=== PATIENT | male | born 1935 | race Caucasian/White ===

== ENCOUNTER → 2016-05-21 | Outpatient (CLI) | payer OTHER ==
[~2016-05-21] MED LIST: ASPI81TA25 PO; CARV3.12 PO; CLC100X PO; LISI-461 PO; SIMV20TA2 PO; TRAM-10 PO; TRIA75TA53 PO
[2016-05-21 11:19] LABS: HEMATOCRIT 40.7 % (42-52); MEAN CELL VOLUME 95.1 fL (80-100); MEAN CORPUSCULAR HEMOGLOBIN 31.8 pg (25-34); MEAN CORPUSCULAR HGB CONC 33.4 g/dl (32-36); MEAN PLATELET VOLUME 11.2 fL (7.4-10.4); PLATELET COUNT 168 K/uL (130-400); RED BLOOD COUNT 4.28 M/uL (4.7-6.1); WHITE BLOOD COUNT 4.02 K/uL (4.8-10.8)
[2016-05-21 11:29] LABS: URINE APPEARANCE CLEAR (CLEAR); URINE BILIRUBIN NEG (NEG); URINE COLOR YELLOW; URINE EPITHELIAL CELL AUTO 0-5 /lpf (0-5); URINE NITRITE NEG (NEG); URINE SPECIFIC GRAVITY 1.007 (1.000-1.030); UROBILINOGEN NEG (NEG)
[2016-05-21 11:30] LABS: ALT/SGPT 21 U/L (12-78); AST/SGOT 16 U/L (15-37); BLOOD UREA NITROGEN 34 mg/dl (7-18); BUN/CREATININE RATIO 19.9 (10-20); CALCIUM 9.2 mg/dl (8.5-10.1); CARBON DIOXIDE 24 mmol/L (21-32); CHLORIDE 108 mmol/L (98-107); GLUCOSE 102 mg/dl (70-99); POTASSIUM 5.5 mmol/L (3.5-5.1); SODIUM 140 mmol/L (136-145)
[2016-05-21 11:32] LABS: ALB/GLOB RATIO 0.9 (0.9-2); ALKALINE PHOSPHATASE 138 U/L (45-117)
[2016-05-21 11:43] LABS: MANUAL MICROSCOPIC REQUIRED? NO; REVIEW REQ? NO
[2016-05-21 11:47] LABS: URINE PROTIEN/CREAT RATIO 0.3 (0-0.2); URINE TOTAL PROTEIN 17.2 mg/dl (0-11.9)
== END | disposition home or self-care (01) ==
LOC: C.LAB1850 10:25
PROVIDERS: ATTEND Internal Medicine Nephrology
DX: I12.9 Hypertensive chronic kidney disease with stage 1 through stage 4 chronic kidney disease, or unspecified chronic kidney disease (principal); N18.3 Chronic kidney disease, stage 3 (moderate); D64.9 Anemia, unspecified; E55.9 Vitamin D deficiency, unspecified; R80.9 Proteinuria, unspecified; E87.5 Hyperkalemia

== ENCOUNTER → 2016-05-27 | Outpatient (CLI) | payer OTHER ==
[2016-05-27 10:03] LABS: BLOOD UREA NITROGEN 29 mg/dl (7-18); BUN/CREATININE RATIO 18.2 (10-20); CARBON DIOXIDE 26 mmol/L (21-32); CHLORIDE 109 mmol/L (98-107); GLUCOSE 95 mg/dl (70-99); POTASSIUM 4.6 mmol/L (3.5-5.1); SODIUM 142 mmol/L (136-145)
[2016-05-27 10:07] LABS: CHOLESTEROL 119 mg/dl (0-200); CHOLESTEROL/HDL RATIO 2.4; HDL CHOLESTEROL 50 mg/dl; LDL CHOLESTEROL CALCULATED 50 mg/dl; TRIGLYCERIDES 96 mg/dl (0-150); VERY LOW DENSITY LIPOPROT CALC 19 mg/dl
== END | disposition home or self-care (01) ==
LOC: C.LAB1850 08:18
PROVIDERS: ATTEND Internal Medicine
DX: E78.5 Hyperlipidemia, unspecified (principal); E87.5 Hyperkalemia

== ENCOUNTER → 2016-07-23 | Outpatient (CLI) | payer OTHER ==
[2016-07-23 11:40] LABS: BLOOD UREA NITROGEN 29 mg/dl (7-18); BUN/CREATININE RATIO 19.3 (10-20); CALCIUM 8.8 mg/dl (8.5-10.1); CARBON DIOXIDE 29 mmol/L (21-32); CHLORIDE 108 mmol/L (98-107); GLUCOSE 115 mg/dl (70-99); PHOSPHORUS 2.3 mg/dl (2.5-4.9); POTASSIUM 4.1 mmol/L (3.5-5.1); SODIUM 144 mmol/L (136-145)
== END | disposition home or self-care (01) ==
LOC: C.LAB1850 10:08
PROVIDERS: ATTEND Internal Medicine Nephrology
DX: I10 Essential (primary) hypertension (principal); N18.3 Chronic kidney disease, stage 3 (moderate); D64.9 Anemia, unspecified; E55.9 Vitamin D deficiency, unspecified; E87.5 Hyperkalemia

== ENCOUNTER 2016-12-21 19:24 | Emergency (ER) | payer OTHER ==
[~2016-12-21] VITALS: Ht 175.3 cm; Wt 75.4 kg
[2016-12-21 19:25] VITALS: TEMP 36.7; Ht 175.3 cm; Wt 75.4 kg
[2016-12-21 19:39] VITALS: BP 149/92; PULSE 79; O2SAT 97
--- NOTE | 2016-12-21 19:56 | EMERGENCY ROOM VISIT NOTE ---
ED Visit Note First contact with patient: 19:29 81-year-old male with a laceration to his left forearm was fully evaluated by Harvey Barger PA-C. Please see his note. I also independently evaluated the patient. The patient will check his tetanus status with his family physician.
--- NOTE | 2016-12-21 20:49 | EMERGENCY ROOM VISIT NOTE ---
History First contact with patient: 19:29 Chief Complaint: LACERATION/CUT (NON-SUTURE) Stated Complaint: CUT LF FOREARM Nursing Triage Summary: pt cut his left forearm on a russell while cutting grass History of Present Illness The patient is a 81 year old male who presents to the Emergency Room with complaints of a laceration to his left forearm after he backed into a lilac russell while mowing his grass, and cut his forearm. The patient denies any significant bleeding. Tetanus immunization is up-to-date. Review of Systems 6 system review was performed and was negative except for pertinent positives and negatives as indicated in history of present illness Past Medical/Surgical History Medical Problems: (1) Appendectomy (2) CALCULUS OF KIDNEY (3) CHRONIC KIDNEY DISEASE, UNSPECIFIED (4) CORON ATHEROSCLER NOS TYPE VESSEL, [place] OR GRAFT (5) DIVERTICULOSIS COLON (W/O MENT OF HEMORRHAGE) (6) HX OF BLADDER MALIGNANCY (7) HYPERLIPIDEMIA NEC/NOS (8) HYPERTENSION NOS (9) HYPERTROPHY (BENIGN) OF PROSTATE W/O URINARY OBST & OTH LUTS (10) LUMBOSACRAL SPONDYLOSIS (11) Placement of stent in coronary artery (12) TOBACCO USE DISORDER Family History Unremarkable Social History Smoking Status: Current Every Day Smoker Alcohol Use: none Marital Status: Occupation Status: retired, disabled Current/Historical Medications Scheduled Aspirin (Aspir-Low), 81 MG PO QAM Carvedilol (Coreg), 3.125 MG PO DAILY Docusate Sodium (Colace), 100 MG PO BID Lisinopril (Zestril), 10 MG PO BID Simvastatin (Zocor), 40 MG PO QPM Triamterene/Hctz (Maxzide 75MG/50MG), 0.5 TAB PO DAILY Scheduled PRN Tramadol (Ultram), 50 MG PO DAILY PRN Physical Exam Vital Signs Date Time Temp Pulse Resp B/P (MAP) Pulse Ox O2 Delivery O2 Flow Rate FiO2 12/21/16 19:39 79 16 149/92 97 12/21/16 19:25 36.7 79 18 178/85 94 Room Air Pain Rating (0-10): 0 Physical Exam CONSTITUTIONAL: Healthy and well nourished. Alert and oriented X 3 with positive affect. HEENT: Normocephalic, atraumatic. Pupils equal, round and reactive. NECK: Full active range of motion without discomfort. MUSCULOSKELETAL: Patient has full range of motion of the left wrist and elbow without discomfort. Distal pulses are intact. INTEGUMENTARY: Examination shows a small 1 cm V-shaped epidermal skin tear of the left dorsal forearm. No active bleeding noted. The flap is not easily approximated. There is no obvious wound contamination. NEUROLOGIC: No focal neurologic deficits noted. Left upper extremity is sensory intact. Medical Decision & Procedures ED Course Patient history and physical exam were performed. Nurse's notes were reviewed. Vital signs were reviewed, showing an elevated blood pressure of 178/85. Evaluation shows a skin tear that is not easily approximated, therefore I suggested keeping the wound clean and covered with an antibiotic ointment and dressing until it heals. The wound was cleansed and wrapped. The patient was instructed to watch for any signs of infection, and either return to the emergency department or follow-up with his family doctor as needed. The patient was happy with plan of care, and voiced understanding of all discharge instructions. The patient was also instructed to follow-up with his family doctor to have his blood pressure rechecked. The patient was also seen and examined by Dr. Baeza, ED attending physician, who agrees with workup and plan of care. Medical Decision Medication Reconcilliation Current Medication List: was personally reviewed by mt Blood Pressure Screening Patient's blood pressure: Elevated blood pressure Blood pressure disposition: Referred to PCP Impression Primary Impression: Laceration of left forearm Departure Information Dispostion Home / Self-Care Condition GOOD Forms HOME CARE DOCUMENTATION FORM, IMPORTANT VISIT INFORMATION Patient Instructions My [facility] [employer] Additional Instructions Keep wound clean and covered with an antibiotic ointment and dressing until it heals. Watch for any signs of infection (increasing redness, swelling, pain or drainage).
== END 2016-12-21 19:45 | disposition home or self-care (01) ==
LOC: C.EDB 19:24 → C.EDD 19:45
DX: S51.812A Laceration without foreign body of left forearm, initial encounter (principal); W45.8XXA Other foreign body or object entering through skin, initial encounter; Y92.096 Garden or yard of other non-institutional residence as the place of occurrence of the external cause; Y93.H2 Activity, gardening and landscaping; N18.9 Chronic kidney disease, unspecified; I25.10 Atherosclerotic heart disease of native coronary artery without angina pectoris; F17.200 Nicotine dependence, unspecified, uncomplicated; K57.30 Diverticulosis of large intestine without perforation or abscess without bleeding; E78.5 Hyperlipidemia, unspecified; N40.0 Benign prostatic hyperplasia without lower urinary tract symptoms; M47.817 Spondylosis without myelopathy or radiculopathy, lumbosacral region; Z85.51 Personal history of malignant neoplasm of bladder; Z95.5 Presence of coronary angioplasty implant and graft; Z79.82 Long term (current) use of aspirin

== ENCOUNTER → 2017-01-22 | Outpatient (CLI) | payer OTHER ==
[2017-01-22 12:18] LABS: URINE APPEARANCE CLEAR (CLEAR); URINE BILIRUBIN NEG (NEG); URINE COLOR YELLOW; URINE EPITHELIAL CELL AUTO 0-5 /lpf (0-5); URINE NITRITE NEG (NEG); URINE PH 6.5 (4.5-7.5); URINE SPECIFIC GRAVITY 1.014 (1.000-1.030); UROBILINOGEN NEG (NEG)
[2017-01-22 12:19] LABS: MEAN CELL VOLUME 94.5 fL (80-100); MEAN CORPUSCULAR HEMOGLOBIN 31.8 pg (25-34); MEAN CORPUSCULAR HGB CONC 33.7 g/dl (32-36); MEAN PLATELET VOLUME 11.6 fL (7.4-10.4); PLATELET COUNT 178 K/uL (130-400); RED BLOOD COUNT 4.34 M/uL (4.7-6.1); WHITE BLOOD COUNT 4.93 K/uL (4.8-10.8)
[2017-01-22 12:23] LABS: MANUAL MICROSCOPIC REQUIRED? NO; REVIEW REQ? NO
[2017-01-22 12:28] LABS: BLOOD UREA NITROGEN 28 mg/dl (7-18); BUN/CREATININE RATIO 18.4 (10-20); CALCIUM 9.6 mg/dl (8.5-10.1); CARBON DIOXIDE 27 mmol/L (21-32); CHLORIDE 105 mmol/L (98-107); GLUCOSE 89 mg/dl (70-99); POTASSIUM 4.6 mmol/L (3.5-5.1); SODIUM 137 mmol/L (136-145)
[2017-01-22 12:29] LABS: PHOSPHORUS 2.4 mg/dl (2.5-4.9)
[2017-01-22 12:35] LABS: URINE PROTIEN/CREAT RATIO 0.4 (0-0.2); URINE TOTAL PROTEIN 21.7 mg/dl (0-11.9)
== END | disposition home or self-care (01) ==
LOC: C.LAB1850 10:46
PROVIDERS: ATTEND Internal Medicine Nephrology
DX: I12.9 Hypertensive chronic kidney disease with stage 1 through stage 4 chronic kidney disease, or unspecified chronic kidney disease (principal); N18.3 Chronic kidney disease, stage 3 (moderate); D64.9 Anemia, unspecified; E55.9 Vitamin D deficiency, unspecified; R80.9 Proteinuria, unspecified; E87.5 Hyperkalemia

== ENCOUNTER → 2017-03-07 | Outpatient (CLI) | payer OTHER ==
[2017-03-07 16:46] LABS: C-REACTIVE PROTEIN < 0.29 mg/dl (0-0.29); RHEUMATOID FACTOR < 10.0 U/mL (0-15)
[2017-03-07 17:08] LABS: PLATELET COUNT 163 K/uL (130-400)
[2017-03-07 17:37] LABS: LYME DISEASE AB IGG NEG (NEG); LYME DISEASE AB IGM NEG (NEG)
[2017-03-10 01:36] LABS: RAPID PLASMA REAGIN NONREACTIVE (NONREACT)
[2017-03-10 15:09] LABS: SM.RNP ANTIBODY <1.0 NEG AI (<1.0 NEG); Sm Antibody <1.0 NEG AI (<1.0 NEG)
== END | disposition home or self-care (01) ==
LOC: C.LABBFT 11:32
PROVIDERS: ATTEND Optometrist
DX: H49.21 Sixth [abducent] nerve palsy, right eye (principal)

== ENCOUNTER → 2017-07-22 | Outpatient (CLI) | payer OTHER ==
[2017-07-22 10:06] LABS: HEMATOCRIT 40.6 % (42-52); HEMOGLOBIN 13.5 g/dL (14.0-18.0); MEAN CELL VOLUME 95.5 fL (80-100); MEAN CORPUSCULAR HEMOGLOBIN 31.8 pg (25-34); MEAN CORPUSCULAR HGB CONC 33.3 g/dl (32-36); MEAN PLATELET VOLUME 11.1 fL (7.4-10.4); PLATELET COUNT 193 K/uL (130-400); RED CELL DISTRIBUTION WIDTH SD 48.9 fL (36.4-46.3); WHITE BLOOD COUNT 4.69 K/uL (4.8-10.8)
[2017-07-22 10:45] LABS: ALBUMIN 3.3 gm/dl (3.4-5.0); BLOOD UREA NITROGEN 36 mg/dl (7-18); CALCIUM 9.3 mg/dl (8.5-10.1); CARBON DIOXIDE 28 mmol/L (21-32); CHOLESTEROL 113 mg/dl (0-200); CREATININE 1.43 mg/dl (0.60-1.40); GLUCOSE 79 mg/dl (70-99); POTASSIUM 4.1 mmol/L (3.5-5.1); SODIUM 140 mmol/L (136-145)
[2017-07-22 10:48] LABS: LDL CHOLESTEROL CALCULATED 48 mg/dl; PHOSPHORUS 2.1 mg/dl (2.5-4.9)
== END | disposition home or self-care (01) ==
LOC: C.LAB1850 09:21
PROVIDERS: ATTEND Internal Medicine Nephrology
DX: I12.9 Hypertensive chronic kidney disease with stage 1 through stage 4 chronic kidney disease, or unspecified chronic kidney disease (principal); N18.3 Chronic kidney disease, stage 3 (moderate); R80.9 Proteinuria, unspecified; Z86.2 Personal history of diseases of the blood and blood-forming organs and certain disorders involving the immune mechanism; E55.9 Vitamin D deficiency, unspecified; E78.5 Hyperlipidemia, unspecified

== ENCOUNTER → 2018-01-12 | Outpatient (CLI) | payer OTHER ==
--- NOTE | 2018-01-12 11:14 | DIAGNOSTIC IMAGING REPORT ---
RENAL ULTRASOUND HISTORY: HISTORY OF MALIGNANT NEOPLASM OF BLADDER COMPARISON: Renal ultrasound 02/16/2013. FINDINGS: Right kidney: 10.5 cm. No hydronephrosis. Moderate cortical renal thinning and increased cortical echogenicity. Multiple small cysts with the largest measuring 1 cm. No change in the extrarenal pelvis versus a parapelvic cyst. Left kidney: 12.0 cm. No hydronephrosis. Mild cortical renal thinning and increased cortical echogenicity. Multiple small cysts with the largest measuring 1.5 cm. No change in the extrarenal pelvis versus a parapelvic cyst. Bladder: No bladder wall thickening. The bilateral ureteral jets were identified. The prostate is enlarged measuring 5.4 cm in length. IMPRESSION: 1. Overall, no significant change compared to the prior study. 2. Moderate right and mild left cortical renal scarring/thinning. 3. Bilateral renal cysts. No hydronephrosis. Electronically signed by: Keven Velazquez M.D. 01/12/2018 11:13 AM Dictated Date/Time: 01/12/2018 11:08 AM
== END | disposition home or self-care (01) ==
LOC: C.ULTR 10:06
PROVIDERS: ATTEND Urology
DX: Z85.51 Personal history of malignant neoplasm of bladder (principal); N28.1 Cyst of kidney, acquired